=== PATIENT | female | born 1945 | race African-American/Black ===

== ENCOUNTER 2017-11-11 16:06 | Emergency (ER) | payer OTHER ==
[~2017-11-11] VITALS: Ht 177.8 cm; Wt 117.9 kg
[2017-11-11] MEDS ORDERED: SYNTHROID75 MCG PO (19:31)
[2017-11-11] MEDS ORDERED: TOPROL XL100 M1 PO (19:32)
[2017-11-11] MEDS ORDERED: AMLODIPINE BESY10 M1 PO (19:32)
[2017-11-11] MEDS ORDERED: LOSARTAN-HCTZ1 EACH PO (19:32)
[2017-11-11] MEDS ORDERED: CYANOCOBAL1000 MCG/2 IM (19:33)
[2017-11-11] MEDS ORDERED: SIMVASTATIN40 M1 PO (19:33)
[2017-11-11] MEDS ORDERED: COLACE100 M1 PO (19:34)
[2017-11-11] MEDS ORDERED: ASPIRIN EC81 M1 PO (19:34)
[2017-11-11] MEDS ORDERED: IRON325 M3 PO (19:34)
[2017-11-11] MEDS ORDERED: LORAZEPAM0.5 M1 PO (19:35)
[2017-11-11] MEDS ORDERED: CELEBREX100 M1 PO (19:35)
[2017-11-11] MEDS ORDERED: TRAMADOL HCL50 M1 PO (19:36)
--- NOTE | 2017-11-11 19:46 | ED NECK/BACK PAIN COMPLAINT ---
History of Present Illness General Chief Complaint: Hip Injury Stated Complaint: RIGHT SIDED HIP AND LEG PAIN Source: patient Exam Limitations: no limitations Vital Signs & Intake/Output Vital Signs & Intake/Output Vital Signs Date Time Temp Pulse Resp B/P B/P Pulse O2 O2 Flow FiO2 Mean Ox Delivery Rate 11/11 2105 98.8 62 18 164/70 97 Room Air 11/11 1957 97 Room Air 11/11 1619 98.0 80 18 182/80 97 Room Air Allergies Coded Allergies: codeine (PALPITATIONS 11/11/17) morphine (HALLUCINATIONS 11/11/17) Reconcile Medications Amlodipine Besylate 10 MG TABLET 1 TAB PO DAILY BP (Reported) Aspirin (Ecotrin*) 81 MG TABLET.DR 1 TAB PO DAILY HEART/BLOOD (Reported) Celecoxib (Celebrex) 100 MG CAPSULE 1 CAP PO BID PRN PAIN/INFLAMMATION ( Reported) Cyanocobalamin (Vitamin B-12) (Cyanocobalamin Injection) 1,000 MCG/ML VIAL 1 ML IM Q30D SUPPLEMENT (Reported) Docusate Sodium (Colace) 100 MG CAPSULE 1 CAP PO DAILY STOOL SOFTENER ( Reported) Ferrous Sulfate (IRON) 325 MG (65 MG IRON) TABLET 1 TAB PO DAILY SUPPLEMENT ( Reported) Levothyroxine Sodium (Synthroid) 75 MCG TABLET 1 TAB PO DAILY THYROID ( Reported) Lorazepam 0.5 MG TABLET 1 TAB PO PRN ANXIETY (Reported) Losartan/Hydrochlorothiazide (Losartan-Hctz 100-12.5 MG Tab) 100 MG-12.5 MG TABLET 1 TAB PO DAILY BP (Reported) Methylprednisolone. (Medrol) 4 MG TAB.DS.PK 1 DP PO AD back clement/sciatica 6 on day 1 then reduce by one tablet daily until gone Metoprolol Succ XL (Toprol XL) 100 MG TAB.ER.24H 1.5 TAB PO DAILY HEART/BP ( Reported) Oxycodone HCl/Acetaminophen (Percocet 5-325 MG Tablet) 5 MG-325 MG TABLET 1-2 TAB PO BID pain Simvastatin (Simvastatin*) 40 MG TABLET 1 TAB PO QHS CHOLESTEROL (Reported) Tramadol HCl 50 MG TABLET 1 TAB PO AD PRN PAIN (Reported) Triage Note: 72F W RIGHT HIP PAIN RADIATING DOWN LEG SINCE LAST NIGHT. DENIES INJURY OR TRAUMA. REPORTS TINGLING IN FOOT AT TIMES. PAIN 01/23. PT REFUSED TYLENOL. ALSO REFUSED MOTRIN SHE ONLY TAKES ADVIL, DESPITE OFFERING AND STATING THAT THEY ARE BOTH IBUPROFEN. PT AND FAMILY STATED SHE NEEDS A STRETCHER, INFORMED THAT THERE ARE NO STRETCHERS AVAILABLE AT THIS TIME DUE TO HIGH VOLUME AND ACUITY WITHIN THE ED. INFORMED WAITING PERFORMED Triage Nurses Notes Reviewed? yes Onset: Abrupt Duration: day(s): Timing: recent history Quality/Severity: moderate, severe Loss of Consciousness: no loss of consciousness HPI: 72-year-old female comes into the emergency room for further evaluation of right hip/back pain. Pain radiates down her right leg. Worse with range of motion. Denies any falls or trauma that she can think of. Patient reports the symptoms been going on for the past few days and she comes in for further evaluation. (Juan Miguel Benjamin) Past History Travel History Traveled to [place] past 21 day No Medical History Any Pertinent Medical History? see below for history Neurological: NONE EENT: NONE Cardiovascular: hypertension, hyperlipidemia Respiratory: NONE Gastrointestinal: NONE Hepatic: NONE Renal: NONE Musculoskeletal: NONE Psychiatric: NONE Endocrine: NONE Blood Disorders: anemia Tetanus Vaccine: 07/04/11 Surgical History Surgical History: non-contributory Psychosocial History Who do you live with Patient/Self Services at Home None What is your primary language Korean Tobacco Use: Never used Family History Hx Contributory? No (Juan Miguel Benjamin) Review of Systems Review of Systems Constitutional: Reports: no symptoms. Eyes: Reports: no symptoms. Ears, Nose, Throat, Mouth: Reports: no symptoms. Respiratory: Reports: no symptoms. Cardiovascular: Reports: no symptoms. Gastrointestinal/Abdominal: Reports: no symptoms. Musculoskeletal: Reports: see HPI. Skin: Reports: no symptoms. Neurological/Psychological: Reports: no symptoms. All Other Systems: Reviewed and Negative (Juan Miguel Benjamin) Physical Exam Physical Exam General Appearance: well developed/nourished, mild distress Head: atraumatic Eyes: Bilateral: normal appearance. Ears, Nose, Throat, Mouth: hearing grossly normal, moist mucous membrane Neck: normal inspection, full range of motion Respiratory: no respiratory distress Cardiovascular: regular rate/rhythm Back: normal inspection, RIGHT SI joint tenderness with palpation Extremities: normal range of motion Motor: Deficit L4 Right: No Deficit L4 Left: No Deficit L5 Right: No Deficit L5 Left: No Deficit S1 Right: No Deficit S1 Right: No Neurologic/Psych: awake, alert, oriented x 3, normal mood/affect Skin: intact, normal color, warm/dry Core Measures CVA/TIA Diagnosis: No (Blas MOSS,Juan Miguel) Progress Differential Diagnosis: herniated disc, myofascial strain, pyelo/UTI, sciatica, T/L spine injury Plan of Care: Current Medications Sig/Kristy Start time Last Medication Dose Stop Time Status Admin Acetaminophen 975 MG ONCE ONE 11/11 1914 CAN (Tylenol) 11/12 1915 Diagnostic Imaging: Viewed by Me: Radiology Read. Discussed w/RAD: Radiology Read. Radiology Impression: PATIENT: RAE THOMPSON PRESENT AGE: 72 PATIENT ACCOUNT NO: [id number] : 43 LOCATION: [facility] ORDERING PHYSICIAN: Juan Miguel MOSS SERVICE DATE: 11/11/17 EXAM TYPE: RAD - XRY-LUMBOSACRAL SPINE AP & LAT EXAMINATION: XR LUMBOSACRAL SPINE CLINICAL INFORMATION: Pain. COMPARISON: 07/10/2012 MRI. TECHNIQUE: 2 views of the lumbosacral spine were obtained. FINDINGS: The vertebral body height and alignment of the lumbar spine are within normal limits. There is narrowing of L5 -S1 intervertebral disc space. Coned-down view of the lower lumbar spine was not obtained. Facet arthropathy at multiple lumbar levels noted. The posterior elements are intact. Degenerative changes of the SI joints are noted. There is no acute fracture or dislocation of the lumbar spine. There is an IVC filter in place at L3 level. There are surgical enrique in the left upper quadrant, and right upper quadrant of the abdomen. Surgical suture chains are seen in the right lower quadrant and pelvic cavity. Correlation with surgical history is suggested. There are pelvic phleboliths. There is a 5 mm calcific density at L4 left transverse process level. Possibility of a ureter stone is not excluded, although this could be located within the bowel loops. IMPRESSION: L5-S1 discopathy. DICTATED BY: Domenico Lopez MD DATE/TIME DICTATED:11/11/171946 DESIGNER AND PATTERNMAKER:GENIE DATE/TIME TRANSCRIBED:11/11/171946 CONFIDENTIAL, DO NOT COPY WITHOUT APPROPRIATE AUTHORIZATION. <Electronically signed in Other Vendor System> SIGNED BY: Domenico Lopez MD 11/11/171956, PATIENT: RAE THOMPSON PRESENT AGE: 72 PATIENT ACCOUNT NO: [id number] : 43 LOCATION: [facility] ORDERING PHYSICIAN: Juan Miguel MOSS SERVICE DATE: 11/11/17 EXAM TYPE: RAD - XRY-HIP 2-3 VIEWS, RIGHT EXAMINATION: XR HIP, RIGHT CLINICAL INFORMATION: Pain COMPARISON: 03/01/2012 CT scan TECHNIQUE: Two views of the right hip. FINDINGS: There is no acute fracture or dislocation of the right hip. Degenerative changes of the right SI joint noted. Surgical suture chain in the right side of the pelvis noted. Multiple pelvic phleboliths are present. IMPRESSION: No acute fracture or dislocation of the right hip. DICTATED BY: Domenico Lopez MD DATE/TIME DICTATED:11/11/171944 DESIGNER AND PATTERNMAKER:GENIE DATE/TIME TRANSCRIBED:11/11/171944 CONFIDENTIAL, DO NOT COPY WITHOUT APPROPRIATE AUTHORIZATION. <Electronically signed in Other Vendor System> SIGNED BY: Domenico Lopez MD 11/11/171949 (Juan Miguel Benjamin) Departure Departure Disposition: HOME OR SELF CARE Condition: Stable Clinical Impression Primary Impression: Sciatica of right side Referrals: Jessica RODRIGUEZ,Reuben Hernández (PCP/Family) Additional Instructions: Take Medrol Dosepak and Percocet as prescribed. Follow-up with primary care doctor. Return if any concerns worsening symptoms. Please go over all results of today's visit with your primary care doctor. Contact your primary care doctor to let them know you were here in the emergency room. There may be nonspecific findings which may not be related to your visit today here in the emergency room but may require further evaluation and chronic monitoring by your primary care doctor. If you had a laceration today the chance of foreign body always remains. You should follow-up with your primary care doctor for recheck in 3-5 days for a wound check. If you had an x-ray done there is a chance that a fracture could have been missed on initial read and you should follow-up with your primary care doctor for repeat x-rays if symptoms persist. If your blood pressure was elevated here in the emergency room please have rechecked by [facility] primary care doctor within the next 48. If you were prescribed a narcotic here in the emergency room or any type of controlled substances you're not allowed to drive while taking this medication or operate any type of heavy machinery. Narcotics can make you feel lightheaded dizziness nausea and can cause constipation. You may need to sisal picker a stool softener. Thank you for choosing [facility] emergency room. Please return to the emergency room immediately if you have any other concerns worsening of symptoms. Departure Forms: Customer Survey General Discharge Information Prescriptions: Current Visit Scripts Methylprednisolone. (Medrol) 1 DP PO AD #1 DP 6 on day 1 then reduce by one tablet daily until gone Oxycodone HCl/Acetaminophen (Percocet 5-325 MG Tablet) 1-2 TAB PO BID #15 TAB Comments 11/11/2017 9:49:34 PM Patient clinically looks well. In no apparent distress. Symptoms are most consistent with sciatica. Follow-up with PCP. Return if any other concerns worsening symptoms. Patient understands and agrees with plan of care. Pain is worse with range of motion. Reproducible. (Blas MOSS,Juan Miguel) PA/DEVELOPMENT TECHNICIAN Co-Sign Statement Statement: ED Attending supervision documentation- [] I saw and evaluated the patient. I have also reviewed all the pertinent lab results and diagnostic results. I agree with the findings and the plan of care as documented in the PA's/DEVELOPMENT TECHNICIAN's documentation. [x] I have reviewed the ED Record and agree with the PA's/DEVELOPMENT TECHNICIAN's documentation. [] Additions or exceptions (if any) to the PAs/DEVELOPMENT TECHNICIAN's note and plan are summarized below: [] (Pam RODRIGUEZ,Dewayne Tam)
--- NOTE | 2017-11-11 19:50 | RADIOLOGY REPORT ---
EXAMINATION: XR HIP, RIGHT CLINICAL INFORMATION: Pain COMPARISON: 03/01/2012 CT scan TECHNIQUE: Two views of the right hip. FINDINGS: There is no acute fracture or dislocation of the right hip. Degenerative changes of the right SI joint noted. Surgical suture chain in the right side of the pelvis noted. Multiple pelvic phleboliths are present. IMPRESSION: No acute fracture or dislocation of the right hip.
--- NOTE | 2017-11-11 19:57 | RADIOLOGY REPORT ---
EXAMINATION: XR LUMBOSACRAL SPINE CLINICAL INFORMATION: Pain. COMPARISON: 07/10/2012 MRI. TECHNIQUE: 2 views of the lumbosacral spine were obtained. FINDINGS: The vertebral body height and alignment of the lumbar spine are within normal limits. There is narrowing of L5-S1 intervertebral disc space. Coned-down view of the lower lumbar spine was not obtained. Facet arthropathy at multiple lumbar levels noted. The posterior elements are intact. Degenerative changes of the SI joints are noted. There is no acute fracture or dislocation of the lumbar spine. There is an IVC filter in place at L3 level. There are surgical enrique in the left upper quadrant, and right upper quadrant of the abdomen. Surgical suture chains are seen in the right lower quadrant and pelvic cavity. Correlation with surgical history is suggested. There are pelvic phleboliths. There is a 5 mm calcific density at L4 left transverse process level. Possibility of a ureter stone is not excluded, although this could be located within the bowel loops. IMPRESSION: L5-S1 discopathy.
[2017-11-11] MEDS ORDERED: PERCOCET 5-3251 EACH PO (20:39)
[2017-11-11] MEDS ORDERED: MEDROL4 M2 PO (20:39)
[2017-11-11 21:06] VITALS: BP 164/70
== END 2017-11-11 21:30 ==
LOC: ERH 16:06
DX: M54.41 Lumbago with sciatica, right side (principal)
CPT/HCPCS: 72100; 73502-RT